=== PATIENT | male | born 1980 | race Caucasian/White ===

== ENCOUNTER → 2023-10-22 07:16 | Outpatient (REF) | payer OTHER, SELFPAY | LOC: RAD 07:16 | PROVIDERS: ATTENDING PHYSICIAN Nurse Practitioner Adult Health | DX: E66.09 Other obesity due to excess calories (principal); R74.01 Elevation of levels of liver transaminase levels; E78.2 Mixed hyperlipidemia | CPT/HCPCS: 76700 ==

== ENCOUNTER 2024-06-22 06:21 | Day surgery (SDC) | payer OTHER, SELFPAY | END 2024-06-22 09:22 | disposition home or self-care (01) | LOC: GI 06:21 | PROVIDERS: ATTENDING PHYSICIAN Internal Medicine Gastroenterology | DX: Z12.11 Encounter for screening for malignant neoplasm of colon (principal); Z80.0 Family history of malignant neoplasm of digestive organs; K64.8 Other hemorrhoids; D12.0 Benign neoplasm of cecum; K62.1 Rectal polyp | CPT/HCPCS: 45380; 88305 ==